=== PATIENT | female | born 1960 | race Caucasian/White ===

== ENCOUNTER 2021-10-22 19:01 | Emergency (ER) | payer OTHER ==
[~2021-10-22 19:01] MED LIST: CRESTOR40 MG PO; NU-IRON 150150 MG PO; PERCOCET 5/3251 TAB PO; RELPAX20 MG PO; XARELTO10 MG PO; ZESTRIL5 MG PO
[2021-10-22 23:55] LABS: BASOPHIL 0.4 % (0-2); EOSINOPHIL 0.7 % (0-5); HGB 12.4 g/dl (12.5-16.0); LYMPHOCYTE 20.9 % (15-48); MCH 28.9 pg (25.0-31.0); MCHC 32.6 g/dL (32.0-36.0); MCV 88.6 fL (78.0-100.0); MONOCYTE 6.1 % (0-12); MPV 10.2 fL (6.0-9.5); NEUTROPHIL 71.5 % (41-80); NRBC 0; PLT 294 K/uL (150-400); RBC 4.29 M/uL (4.20-5.40); RDW 12.6 % (11.5-14.0)
[2021-10-23 00:18] LABS: CREATININE 0.59 mg/dL (0.51-0.95); POTASSIUM 3.8 mmol/L (3.5-5.1)
[2021-10-23] MEDS ORDERED: HYDROCODONE-CH473 ML PO (02:20)
[2021-10-23] MEDS ORDERED: VENTOLIN HFA IN18 GM INH (02:21)
[2021-10-23] MEDS ORDERED: PREDNISONE 20MG20 MG PO (02:21)
[2021-10-23] MEDS ORDERED: VIBRAMYCIN100 MG PO (02:21)
== END 2021-10-23 02:40 | disposition home or self-care (01) ==
LOC: FER 19:01
PROVIDERS: Internal Medicine
DX: U07.1 COVID-19 (principal); J12.82 Pneumonia due to coronavirus disease 2019; J20.9 Acute bronchitis, unspecified; I10 Essential (primary) hypertension; Z79.899 Other long term (current) drug therapy
CPT/HCPCS: 36415; 71045; 80048; 83880; 84145; 84484; 85025; 93005; 94640; 94664; J1100; J7030